=== PATIENT | male | born 1960 | race Caucasian/White ===

== ENCOUNTER 2016-09-13 16:15 | Emergency (ER) | payer OTHER ==
[2016-09-13] MEDS ORDERED: ASPIRIN CHEWTAB 81 MG TABLET ONE (16:46)
[2016-09-13 17:10] LABS: ABSOLUTE NEUTROPHIL COUNT 4.7 K/mm3 (1.8-7.7); BASO # 0.1 K/mm3 (0.0-0.2); BASO % 0.9 % (0.2-1.0); EOS # 0.2 (0.0-0.5); EOS % 2.2 % (0.9-2.9); HEMATOCRIT 43.8 % (32.0-52.0); HEMOGLOBIN 15.4 gm/l (14.0-18.0); IMM NEUT% 0.4 % (0-1); LYMPH # 2.3 (1.0-4.8); LYMPH % 29.4 % (15-45); MEAN CELL VOLUME 90.3 fl (80.0-94.0); MEAN CORPUSCULAR HEMOGLOBIN 31.8 pg (27.0-31.0); MEAN CORPUSCULAR HGB CONC 35.2 g/dl (33.0-37.0); MEAN PLATELET VOLUME 10.8 fl (7.4-10.4); MONO # 0.6 (0.0-0.8); MONO % 7.7 % (4-12); NEUT % 59.4 % (43-75); PLATELET COUNT 217 K/mm3 (130-400); RED CELL DISTRIBUTION WIDTH 11.8 % (11.5-14.5)
[2016-09-13 17:15] LABS: ALB/GLOB RATIO 1.9 (>1.0); ALBUMIN 4.3 gm/dL (3.5-5.7); CALCIUM 9.5 mg/dL (8.6-10.3)
[2016-09-13 17:22] LABS: TROPONIN I < 0.01 ng/ml (0.0-0.06)
[2016-09-13 17:26] LABS: CKMB ISOENZYME 3.9 ng/ml (0.6-6.3)
--- NOTE | 2016-09-13 18:26 | RAD ---
09/13/2016 6:23 PM CHEST - 2 VIEWS History: Chest pressure symptoms is morning. Comparison: None Findings: Two views of the chest are obtained. The lungs are clear with out effusion or pneumothorax. The cardiomediastinal silhouette is unremarkable.. The osseous structures are intact.. IMPRESSION: No acute intrathoracic process.
== END 2016-09-13 21:10 | disposition home or self-care (01) ==
LOC: ED 16:15
DX: R07.9 Chest pain, unspecified (principal); I25.2 Old myocardial infarction
CPT/HCPCS: 83690; 85025; 82553; 80053; 84484 ×2; 71020; 99284 ×2; 93005; A9270